=== PATIENT | female | born 2000 | race Caucasian/White ===

== ENCOUNTER 2025-10-04 14:03 | Outpatient (CLI) | payer BC, SELFPAY | END 2025-10-04 14:04 | disposition home or self-care (01) | PROVIDERS: PCP Family Medicine; Visit Provider Family Medicine | DX: Z00.00 Encounter for general adult medical examination without abnormal findings (principal); Z13.6 Encounter for screening for cardiovascular disorders | CPT/HCPCS: 80061; 82947 ==